=== PATIENT | female | born 1940 | race Caucasian/White ===

== ENCOUNTER 2016-12-15 15:00 | Inpatient (IN) | payer OTHER ==
--- NOTE | 2016-12-15 15:27 | EDPHY ---
H & P Stated Complaint: 3 days of N/V/D, lack of appetite. Time Seen by Provider: 12/15/16 15:27 - Personal History Current Tetanus Diphtheria and Acellular Pertussis (TDAP): Yes - Medical/Surgical History Hx Asthma: No Hx Chronic Respiratory Disease: No Hx Diabetes: No Hx Cardiac Disease: No Hx Renal Disease: No Hx Cirrhosis: No Hx Alcoholism: No Hx HIV/AIDS: No Hx Splenectomy or Spleen Trauma: No Other PMH: UTI, DIVERTICULITIS, L3-4 FUSION, BOTH KNEES, L SHOULDER SURG, CERVICAL FUSION, SIGMOID RESECTION, - Social History Smoking Status: Former smoker Constitutional: Initial Vital Signs Temperature (C) 36.5 C 12/15/16 15:04 Heart Rate 72 12/15/16 15:04 Respiratory Rate 18 12/15/16 15:04 Blood Pressure 137/81 H 12/15/16 15:04 O2 Sat (%) 97 12/15/16 15:04 O2 Delivery Mode Room Air Allergies/Adverse Reactions: No Known Allergies Allergy (Verified 04/02/16 09:24) Home Medications: Medication Instructions Recorded Donepezil HCl [Aricept 5 MG (*)] 10 mg PO HS 12/08/14 Hydroxychloroquine Sulfate 200 mg PO DAILY 12/08/14 [Plaquenil 200 mg (*)] Bupropion HCl [Wellbutrin Xl] 300 mg PO DAILY 04/02/16 Multivitamins [Multivitamin (*)] 1 each PO DAILY 04/02/16 Omeprazole [Prilosec 20 mg] 40 mg PO DAILY 04/02/16 Promethazine HCl [Phenergan 25mg 12.5 - 25 mg PO BID #30 tab 04/04/16 (*)] Medical Decision Making ED Course/Re-evaluation: CHIEF COMPLAINT: Nausea, lack of appetite. HISTORY OF PRESENT ILLNESS: The patient is a 76-year-old female with a history of diverticulitis who presents with 3 days of nausea, lack of appetite, and headache. She vomited twice yesterday and today. The headache has been intermittent since Thursday. She admits associated loose stools. She has been seen in the ER multiple times for similar symptoms. Symptoms usually go away on their own but these have been more persistent than usual. She denies fever, chills, chest pain, shortness of breath. REVIEW OF SYSTEMS: A 10 point review of systems was performed and is negative with the exception of the elements mentioned in the history of present illness. PHYSICAL EXAM: HR, BP, O2 Sat, RR. Temp noted General Appearance: Alert, well hydrated, appropriate, and non-toxic appearing. Head: Atraumatic without scalp tenderness or obvious injury Eyes: Pupils equal, round, reactive to light and accommodation, EOMI, no trauma , no injection. Ears: Clear bilaterally, no perforation, normal landmarks Nose: Atraumatic, no rhinorrhea, clear. Throat: There is no erythema or exudates, no lesions, normal tonsils, mucus membranes moist. Neck: Supple, 2+ carotid upstroke, nontender, no lymphadenopathy. Respiratory: No retractions, no distress, no wheezes, and no accessory muscle use. Lungs are clear to auscultation bilaterally. Cardiovascular: Regular rate and rhythm, no murmurs, rubs, or gallops. Bilateral carotid, radial, dorsalis pedis, and posterior tibial pulses intact. Good capillary refill all extremities. Gastrointestinal: Abdomen is soft, non-distended, no masses, no rebound, no guarding, no peritoneal signs. Mild Musculoskeletal: Normal active ROM of all extremities, atraumatic. Neurological: Alert, appropriate, and interactive. The patient has normal DTRs and non-focal cranial nerves, motor, sensory, and cerebellar exam. Skin: No rashes, good turgor, no nodules on palpation. Past medical history: UTI, diverticulitis, dementia. Past surgical history: L3/L4 fusion, knee replacements, cervical fusion, sigmoid colon resection. Family history: N/A. Social history: . DIAGNOSTICS/PROCEDURES/CRITICAL CARE TIME: Study: CT of the abdomen/pelvis. Indication: Pain, nausea, vomiting. Results: 1. Circumferential thickening of the second portion of the duodenum, suggesting inflammation or infection, without evidence of obstruction. This could less likely be related to artifact from peristalsis. 2. Stable nonspecific mesenteric stranding, which can be seen with trace ascites, hypoproteinemia, inflammation and other etiologies. 3. Additional findings as above. The study was read by the radiologist, Dr. Fontana. I viewed the images myself on the PACS system. DIFFERENTIAL DIAGNOSIS: The differential diagnosis for the patient's nausea and vomiting included but was not limited to gastroenteritis, gastritis, appendicitis, and medication side effect. MEDICAL DECISION MAKIN-year-old female presents with 3 days of nausea, vomiting, headache, and diarrhea. She does have associated intermittent non-radiating abdominal pain. She has a history of diverticulitis and sigmoid resection and has been seen in the ER multiple times, however this episode is more persistent than usual. On exam she is mildly tender in her lower abdomen. An IV was established and labs ordered. Abdominal/pelvis CT ordered. WBC low at 3.6. Blood work is otherwise unremarkable. CT results conveyed to me as duodenitis by Dr. Fontana. Hospitalist paged. 1gm IV Ertapenem administered. 175: Consulted with Dr. Howell, hospitalist. She accepts admission. I discussed this with the patient and informed her of the plan. I answered her questions. She is comfortable with the plan for admission. - Data Points Laboratory Results: Laboratory Results 12/15/16 15:40 12/15/16 15:40 12/15/16 12/15/16 12/15/16 16:25 15:40 15:40 WBC 3.60 10^3/uL L 10^3/uL (3.80-9.50) RBC 5.35 10^6/uL H 10^6/uL (4.18-5.33) Hgb 16.7 g/dL H g/dL (12.6-16.3) Hct 49.0 % H % (38.0-47.0) MCV 91.6 fL fL (81.5-99.8) MCH 31.2 pg pg (27.9-34.1) MCHC 34.1 g/dL g/dL (32.4-36.7) RDW 13.2 % % (11.5-15.2) Plt Count 179 10^3/uL 10^3/uL (150-400) MPV 10.1 fL fL (8.7-11.7) Neut % (Auto) 54.1 % % (39.3-74.2) Lymph % (Auto) 31.1 % % (15.0-45.0) [place] % (Auto) 12.5 % % (4.5-13.0) Eos % (Auto) 1.4 % % (0.6-7.6) Baso % (Auto) 0.6 % % (0.3-1.7) Nucleat RBC Rel Count 0.0 % % (0.0-0.2) Absolute Neuts (auto) 1.95 10^3/uL 10^3/uL (1.70-6.50) Absolute Lymphs (auto) 1.12 10^3/uL 10^3/uL (1.00-3.00) Absolute Monos (auto) 0.45 10^3/uL 10^3/uL (0.30-0.80) Absolute Eos (auto) 0.05 10^3/uL 10^3/uL (0.03-0.40) Absolute Basos (auto) 0.02 10^3/uL 10^3/uL (0.02-0.10) Absolute Nucleated RBC 0.00 10^3/uL 10^3/uL (0-0.01) Immature Gran % 0.3 % % (0.0-1.1) Immature Gran # 0.01 10^3/uL 10^3/uL (0.00-0.10) Sodium 147 mEq/L H mEq/L (134-144) Potassium 5.1 mEq/L mEq/L (3.5-5.2) Chloride 107 mEq/L mEq/L (97-110) Carbon Dioxide 24 mEq/l mEq/l (22-31) Anion Gap 16 mEq/L mEq/L (8-16) BUN 27 mg/dL H mg/dL (7-23) Creatinine 1.0 mg/dL mg/dL (0.6-1.0) Estimated GFR 54 Glucose 86 mg/dL mg/dL (70-100) Calcium 8.8 mg/dL mg/dL (8.5-10.4) Total Bilirubin Conjugated Bilirubin Unconjugated Bilirubin AST ALT Alkaline Phosphatase Total Protein Albumin Lipase Specimen Hemolysis 117 Urine Color PALE YELLOW Urine Appearance CLEAR Urine pH 6.0 (5.0-7.5) Ur Specific [place] 1.004 (1.002-1.030) Urine Protein NEGATIVE (NEGATIVE) Urine Ketones TRACE H (NEGATIVE) Urine Blood NEGATIVE (NEGATIVE) Urine Nitrate NEGATIVE (NEGATIVE) Urine Bilirubin NEGATIVE (NEGATIVE) Urine Urobilinogen NEGATIVE EU EU (0.2-1.0) Ur Leukocyte Esterase NEGATIVE (NEGATIVE) Ur Culture Indicated? NOT INDICATED (NI) Urine Glucose NEGATIVE (NEGATIVE) 12/15/16 15:15 WBC RBC Hgb Hct MCV MCH MCHC RDW Plt Count MPV Neut % (Auto) Lymph % (Auto) [place] % (Auto) Eos % (Auto) Baso % (Auto) Nucleat RBC Rel Count Absolute Neuts (auto) Absolute Lymphs (auto) Absolute Monos (auto) Absolute Eos (auto) Absolute Basos (auto) Absolute Nucleated RBC Immature Gran % Immature Gran # Sodium Potassium Chloride Carbon Dioxide Anion Gap BUN Creatinine Estimated GFR Glucose Calcium Total Bilirubin 1.1 mg/dL mg/dL (0.1-1.4) Conjugated Bilirubin 0.7 mg/dL H mg/dL (0.0-0.5) Unconjugated Bilirubin 0.4 mg/dL mg/dL (0.0-1.1) AST 59 IU/L H IU/L (14-46) ALT 39 IU/L IU/L (9-52) Alkaline Phosphatase 66 IU/L IU/L (38-126) Total Protein 7.0 g/dL g/dL (6.3-8.2) Albumin 4.5 g/dL g/dL (3.5-5.0) Lipase 166.0 IU/L IU/L (23-300) Specimen Hemolysis Urine Color Urine Appearance Urine pH Ur Specific [place] Urine Protein Urine Ketones Urine Blood Urine Nitrate Urine Bilirubin Urine Urobilinogen Ur Leukocyte Esterase Ur Culture Indicated? Urine Glucose Medications Given: Discontinued Medications Sodium Chloride (Ns) 1,000 mls @ 0 mls/hr IV ONCE ONE PRN Reason: Wide Open Stop: 12/15/16 15:46 Last Admin: 12/15/16 15:45 Dose: 1,000 mls Sodium Chloride (Ns) 1,000 mls @ 0 mls/hr IV ONCE ONE PRN Reason: Wide Open Stop: 12/15/16 16:07 Last Admin: 12/15/16 16:26 Dose: 1,000 mls Ertapenem 1 gm/ Sodium (Chloride) 100 mls @ 200 mls/hr IV EDNOW ONE PRN Reason: Protocol Stop: 12/15/16 18:19 Last Admin: 12/15/16 18:20 Dose: 100 mls Ondansetron HCl (Zofran) 4 mg IVP EDNOW ONE Stop: 12/15/16 15:46 Last Admin: 12/15/16 15:52 Dose: 4 mg Departure - Departure Disposition: [facility] Inpatient Acute Clinical Impression: Duodenitis, Enteritis, Dehydration Nausea & vomiting Qualifiers: Vomiting type: unspecified Vomiting Intractability: non-intractable Qualified Code(s): R11.2 - Nausea with vomiting, unspecified Condition: Fair Report Scribed for: Homero Mckeon Report Scribed by: Rufus Foster Date of Report: 12/15/16 Time of Report: 16:01
[2016-12-15] MEDS ORDERED: ONDANSETRON 4 MG/2 ML VIAL IVP ONE (15:45)
[2016-12-15] MEDS ORDERED: NS 1,000 ML IV ONE ×2 (15:45→16:06)
[2016-12-15 15:49] LABS: % IMMATURE GRANULYOCYTES 0.3 % (0.0-1.1); ABSOLUTE IMMATURE GRANULOCYTES 0.01 10^3/uL (0.00-0.10); ADD DIFF? NO; ADD MORPH? NO; ADD SCAN? NO; ATYPICAL LYMPHOCYTE FLAG 30 (0-99); FRAGMENT RBC FLAG 0 (0-99); HEMOGLOBIN 16.7 g/dL (12.6-16.3); LEFT SHIFT FLG 0 (0-99); LIPEMIA HEMOLYSIS FLAG 90 (0-99); MEAN CELL HEMOGLOBIN 31.2 pg (27.9-34.1); MEAN CELL HEMOGLOBIN CONCENTR. 34.1 g/dL (32.4-36.7); MEAN CELL VOLUME 91.6 fL (81.5-99.8); MEAN PLATELET VOLUME 10.1 fL (8.7-11.7); PLATELET CLUMPS FLAG 30 (0-99); PLATELET COUNT 179 10^3/uL (150-400); RED BLOOD CELL COUNT 5.35 10^6/uL (4.18-5.33); RED CELL DISTRIBUTION WIDTH 13.2 % (11.5-15.2)
[2016-12-15 16:07] LABS: ANION GAP 16 mEq/L (8-16); CALCIUM 8.8 mg/dL (8.5-10.4); CARBON DIOXIDE 24 mEq/l (22-31); CHLORIDE 107 mEq/L (97-110); GLOMERULAR FILTRATION RATE 54; GLUCOSE 86 mg/dL (70-100); POTASSIUM 5.1 mEq/L (3.5-5.2); SODIUM 147 mEq/L (134-144); SPECIMEN HEMOLYSIS 117
[2016-12-15] MEDS ORDERED: IOPAMIDOL (ISOVUE-300) 100 ML BTL IV ONE (16:44)
[2016-12-15 16:50] LABS: ALBUMIN 4.5 g/dL (3.5-5.0); BILIRUBIN,TOTAL 1.1 mg/dL (0.1-1.4); BILIRUBIN-CONJUGATED 0.7 mg/dL (0.0-0.5); BILIRUBIN-UNCONJUGATED 0.4 mg/dL (0.0-1.1)
[2016-12-15 16:53] LABS: COLOR PALE YELLOW; LEUKOCYTE ESTERASE,URINE NEGATIVE (NEGATIVE); NITRITE,URINE NEGATIVE (NEGATIVE)
[2016-12-15] MEDS ORDERED: ERTAPENEM 1 GM in NS 100 ML IV ONE (17:50)
[2016-12-15] MEDS ORDERED: ACETAMINOPHEN 325 MG TAB PO PRN (19:52)
[2016-12-15] MEDS ORDERED: D5W 1/2 NS 1,000 ML IV SCH (20:00)
[2016-12-15] MEDS: ONDANSETRON 4 MG/2 ML VIAL IVP PRN (20:13)
--- NOTE | 2016-12-15 21:07 | GHP ---
[f rep st] HISTORY AND PHYSICAL DATE OF ADMISSION: 12/15/2016 CHIEF COMPLAINT: Nausea, vomiting, abdominal pain. HISTORY OF PRESENT ILLNESS: The patient is a 76-year-old female with a history of chronic GI symptoms including ongoing nausea who presents to the emergency department with abdominal pain, nausea, vomiting. She has had little p.o. intake over the last several days. Her gives most of the history due to her dementia. She is followed by Dr. Torrey Johnson of [facility], and underwent an upper endoscopy in May 2016 which was relatively normal. She has been diagnosed with irritable bowel syndrome, and was started on Linzess in the recent past to manage constipation predominant IBS. However recently, she has had more diarrhea. She denies hematemesis, coffee-grounds emesis, hematochezia or melenotic stools. She has had no fevers or chills. She has not taken any recent antibiotics. She does have a travel history to [place]. She denies chest pain, shortness of breath or urinary symptoms. The patient had no significant weight loss recently. In the emergency department, she underwent abdominal CT scan which shows circumferential thickening of the second portion of the duodenum suggesting inflammation versus infection, but no evidence of obstruction. There was also some consideration this could less likely be related to artifact from peristalsis. Given her symptoms, poor oral intake and CT finding, she is admitted to hospital for further management. PAST MEDICAL AND SURGICAL HISTORY: 1. History of diverticulitis. 2. Sigmoid resection secondary to diverticulitis in 2012. 3. Irritable bowel syndrome with constipation predominant, managed by Dr. Torrey Johnson, currently on Linzess. 4. Dementia, on Aricept. 5. History of gastritis. 6. Osteoarthritis. SOCIAL HISTORY: She denies alcohol or tobacco or drug use. She lives with her who is present at the bedside. Her son is also a appliance fixer physician. FAMILY HISTORY: Reviewed and noncontributory. REVIEW OF SYSTEMS: A 10-point review of systems was performed and is negative except as per HPI. OBJECTIVE: VITAL SIGNS: Temperature 36.6, blood pressure 155/89, heart rate 67 , respiratory rate 14, she is 96% on room air. GENERAL: The patient is awake, alert, oriented, no acute distress. HEENT: Head is atraumatic, normocephalic. Pupils equal, round, react to light. Extraocular muscles intact. Oropharynx is clear. Mucous membranes are moist. NECK: Supple. There is no JVD. HEART : Regular rate without murmur. LUNGS: Clear to auscultation bilaterally. ABDOMEN: Soft, nondistended, nontender with normoactive bowel tones. EXTREMITIES: Without cyanosis, clubbing, or edema. NEUROLOGIC: Grossly nonfocal. LABORATORY DATA: CBC reveals a white blood cell count of 3.6, hemoglobin 16.7. Complete metabolic panel is remarkable for sodium 127, BUN 27, conjugated bilirubin is 0.7, total bilirubin is normal. AST is very minimally elevated at 59, ALT 39, her lipase is normal. Urinalysis is negative. Abdomen and pelvis CT, findings are described above. ASSESSMENT AND PLAN: The patient is a 76-year-old female with a history of chronic nausea and gastrointestinal symptoms who presents to the hospital with nausea, vomiting, diarrhea and abdominal pain. 1. Nausea, vomiting, diarrhea. Her CT shows evidence of duodenitis vs less likely peristaltic artifact. Differential includes a possible infectious etiology vs duodenal ulcer versus neoplasm. Send GI pathogen panel. Check H pylori Ab and start IV PPI. She received 1 g of IV Invanz in the emergency department. I'm going to defer further atbx for now, unless she is C diff positive. Consider a GI consult if she is not improving for consideration of repeat EGD. She will be given IV fluids due to poor oral intake. 2. Hypernatremia, this is mild. She may be hemoconcentrated. Will treat with half normal saline for now. Recheck in the morning. 3. Dementia. We will continue her outpatient medications. 4. DVT prophylaxis. Lovenox. 5. CODE STATUS: Patient is full code. 6. Disposition: Patient admitted to inpatient status as she will likely require greater than 48 hours hospitalization for ongoing management of her acute GI symptoms. /[id number]/MODL MTDD
[2016-12-15] MEDS: DONEPEZIL HCL 5 MG TAB PO SCH (22:23)
[2016-12-15] MEDS: PROMETHAZINE HCL 25 MG TAB PO PRN (22:25)
[2016-12-15] MEDS: PANTOPRAZOLE SODIUM 40 MG in NS 100 ML IV SCH (22:27)
[2016-12-15] MEDS: TRAMADOL HCL 100 MG PO SCH (23:10)
[2016-12-16] MEDS: PROMETHAZINE HCL 25 MG TAB PO PRN (05:50)
[2016-12-16 06:00] LABS: % IMMATURE GRANULYOCYTES 0.3 % (0.0-1.1); ABSOLUTE IMMATURE GRANULOCYTES 0.01 10^3/uL (0.00-0.10); ADD DIFF? NO; ADD MORPH? NO; ADD SCAN? NO; ATYPICAL LYMPHOCYTE FLAG 20 (0-99); FRAGMENT RBC FLAG 0 (0-99); HEMOGLOBIN 14.1 g/dL (12.6-16.3); LEFT SHIFT FLG 0 (0-99); LIPEMIA HEMOLYSIS FLAG 80 (0-99); MEAN CELL HEMOGLOBIN 30.9 pg (27.9-34.1); MEAN CELL HEMOGLOBIN CONCENTR. 33.6 g/dL (32.4-36.7); MEAN CELL VOLUME 91.9 fL (81.5-99.8); MEAN PLATELET VOLUME 10.1 fL (8.7-11.7); PLATELET CLUMPS FLAG 0 (0-99); PLATELET COUNT 157 10^3/uL (150-400); RED BLOOD CELL COUNT 4.57 10^6/uL (4.18-5.33); RED CELL DISTRIBUTION WIDTH 13.4 % (11.5-15.2)
[2016-12-16 06:07] LABS: ALANINE AMINOTRANSFERASE 40 IU/L (9-52); ALBUMIN 3.4 g/dL (3.5-5.0); ALKALINE PHOSPHATASE 41 IU/L (38-126); ANION GAP 7 mEq/L (8-16); ASPARTATE AMINOTRANSFERASE 40 IU/L (14-46); BILIRUBIN,TOTAL 0.7 mg/dL (0.1-1.4); CALCIUM 7.4 mg/dL (8.5-10.4); CARBON DIOXIDE 22 mEq/l (22-31); CHLORIDE 110 mEq/L (97-110); CREATININE 0.9 mg/dL (0.6-1.0); GLOMERULAR FILTRATION RATE > 60; GLUCOSE 74 mg/dL (70-100); POTASSIUM 4.2 mEq/L (3.5-5.2); SODIUM 139 mEq/L (134-144); TOTAL PROTEIN 5.8 g/dL (6.3-8.2)
[2016-12-16] MEDS: HYDROXYCHLOROQUINE SULFATE 200 MG TAB PO SCH (08:34)
[2016-12-16] MEDS: ONDANSETRON 4 MG/2 ML VIAL IVP PRN (08:34)
[2016-12-16] MEDS: ENOXAPARIN 40 MG/0.4 ML SYR SC SCH (08:34)
[2016-12-16] MEDS: buPROPion XL 150 MG TAB PO SCH (08:34)
[2016-12-16] MEDS: PANTOPRAZOLE SODIUM 40 MG in NS 100 ML IV SCH ×2 (08:34→20:30)
[2016-12-16] MEDS: TRAMADOL HCL 100 MG PO SCH (08:39)
[2016-12-16] MEDS ORDERED: MIDAZOLAM 2 MG/2 ML VIAL ONE (14:24)
[2016-12-16] MEDS ORDERED: fentaNYL 100 MCG/2 ML INJ ONE (14:25)
[2016-12-16] MEDS ORDERED: FLUMAZENIL 0.5 MG/5 ML MDV IVP ONE (14:28)
[2016-12-16] MEDS ORDERED: EPINEPHrine 1 MG/10 ML SYR IVP ONE (14:28)
[2016-12-16] MEDS ORDERED: NALOXONE HCL 0.4 MG/ML INJ ONE (14:28)
--- NOTE | 2016-12-16 15:35 | GCON ---
[f rep st] CONSULTATION ASSESSMENT: A 76-year-old female with a history of chronic gastrointestinal symptoms who is presenting with acute exacerbation of epigastric abdominal pain , nausea, and vomiting, with an abnormal CT scan showing circumferential duodenal thickness. The differential includes exacerbation of her chronic symptoms, acute viral gastroenteritis. Gastritis or duodenitis are possible. Gastric ulceration is possible with the abnormal CT scan findings or duodenal malignancy. RECOMMENDATIONS: 1. Agree with IV PPI treatment. 2. Keep n.p.o. 3. We will plan for an upper endoscopy for further evaluation of abnormal CT scan findings. 4. Further recommendations pending the results of her upper endoscopy. CHIEF COMPLAINT: I was asked to see the patient in consultation by Dr. Ward for the chief complaint of nausea, vomiting, epigastric abdominal pain, diarrhea , and abnormal imaging of the GI tract. HISTORY OF PRESENT ILLNESS: The patient is a 76-year-old female who is followed in our clinic by Dr. Torrey Johnson. She has undergone an extensive workup in the past, including upper endoscopy and colonoscopy. Her last upper endoscopy was in 2016, which was normal. She presents to the emergency room with acute moderate to severe onset of epigastric abdominal pain, nausea, and vomiting. She is unable to take oral intake over the last 2 days. She has a history of dementia, and most of her history is obtained from her . She has a history of irritable bowel syndrome and is on Linzess for management of chronic constipation related to irritable bowel syndrome. She has ongoing constipation symptoms. Her last bowel movement was several days ago. She denies any fevers. No hematemesis or hematochezia. She has no weight loss. She is feeling better since admission to the hospital, although still has some mild periumbilical discomfort. REVIEW OF SYSTEMS: CONSTITUTIONAL: Negative. HEENT: Negative. RESPIRATORY: Negative. CARDIOVASCULAR: Negative. GASTROINTESTINAL: See History of Present Illness. GENITOURINARY: Negative. ENDOCRINE: Negative. MUSCULOSKELETAL: Negative. HEMATOLOGIC/LYMPHATIC: Negative. IMMUNOLOGIC/ ALLERGIC/RHEUMATOLOGIC: Negative. SKIN: Negative. NEUROLOGIC: She has some memory difficulties secondary to dementia. MENTAL HEALTH: Negative. PAST MEDICAL HISTORY: 1. History of diverticulitis with sigmoid resection in 2012. 2. Irritable bowel syndrome with constipation, on Linzess. 3. Dementia, on Aricept. 4. Osteoarthritis. PAST SURGICAL HISTORY: History of sigmoid resection secondary to diverticulitis. FAMILY HISTORY: There is no family history related to the chief complaint. SOCIAL HISTORY: She does not drink alcohol or smoke cigarettes. She lives with her . ALLERGIES: She has no known drug allergies. MEDICATIONS: Outpatient: 1. Linzess 290 mcg orally daily. 2. Omeprazole 40 mg orally daily. 3. Zofran 4 mg as needed for nausea. 4. Aricept 10 mg per day. 5. Hydroxychloroquine sulfate 200 mg once daily. 6. Multivitamin once daily. 7. Tramadol 50 mg as needed. 8. Wellbutrin 300 mg orally daily. Inpatient medications: 1. Acetaminophen. 2. Wellbutrin. 3. Aricept. 4. Enoxaparin. Her last dose was this morning, 40 mg subcu for DVT prophylaxis. 5. Hydroxychloroquine sulfate 200 mg orally daily. 6. Morphine 1-2 mg every 2 hours as needed. 7. Zofran 4 mg every 4 hours as needed. 8. Pantoprazole 40 mg IV b.i.d. PHYSICAL EXAMINATION: VITAL SIGNS: Blood pressure is 126/70, heart rate 61, respirations 16, oxygen saturation 95% on room air. GENERAL: She is in no apparent distress. Awake, alert, interactive. HEENT: Pupils are equal, round , and reactive to light. Oral mucosa is moist. CHEST: Clear to auscultation bilaterally without rales, rhonchi, or wheezing. CARDIOVASCULAR: Regular rate and rhythm. No murmurs, rubs, or gallops. ABDOMEN: Mildly tender to light palpation in the periumbilical region, otherwise benign abdomen. Positive bowel sounds. MUSCULOSKELETAL: There is full range of motion. SKIN: [place], warm, and well perfused. No rashes. NEUROLOGIC: Grossly nonfocal. Cranial nerves 2-12 are intact. Lymph Nodes: No palpable lymph nodes. PSYCHIATRIC: She has mild dementia. No mood disorder and normal affect. LABORATORY DATA: White blood cell count of 3, hemoglobin 14.1, hematocrit 40, MCV 91, platelets 157. Sodium 139, potassium 4.2, chloride 110, calcium 7.4, total protein 5.8, albumin 3.7, AST 40, ALT 42, total bilirubin 0.7, alkaline phosphatase 41. Abdominal CT scan shows circumferential thickening in the 2nd portion of the duodenum, suggestive of inflammation or infection without evidence of obstruction. This could less likely be related to artifact from peristalsis. /[id number]/MODL MTDD
--- NOTE | 2016-12-16 16:08 | HOSPPROG ---
Hospitalist Progress Note Assessment/Plan: * acute nausea vomiting epigastric pain with CT findings of duodenitis * discussed with GI - they will do endoscopy * possibly infectious versus gastritis or duodenitis versus ulcer or malignancy * history of interval bowel syndrome with constipation dominant * dementia Subjective: is little bit better. Still with some epigastric pain Objective: Vital Signs Temp Pulse Resp BP Pulse Ox 36.3 C 61 18 113/74 95 12/16/16 15:54 12/16/16 15:54 12/16/16 15:54 12/16/16 15:54 12/16/16 15:54 Laboratory Results 12/16/16 05:45 12/16/16 05:45 12/15/16 12/16/16 12/17/16 05:59 05:59 05:59 Intake Total 100 Output Total 1250 Balance 100 -[address] scan personally reviewed interpreted - Physical Exam Constitutional: no apparent distress, appears nourished, not in pain Eyes: anicteric sclera, EOMI Ears, Nose, Mouth, Throat: moist mucous membranes, hearing normal, ears appear normal, no oral mucosal ulcers Cardiovascular: regular rate and rhythym, no murmur, rub, or gallop Respiratory: no respiratory distress, no rales or rhonchi, clear to auscultation Gastrointestinal: normoactive bowel sounds, tenderness ( epigastric) Skin: warm Neurologic: AAOx3 Psychiatric: interacting appropriately, not anxious, not encephalopathic, thought process linear ICD10 Worksheet Patient Problems: Problems Problem Status Onset Dehydration Acute Duodenitis Acute Enteritis Acute Nausea & vomiting Acute Abdominal pain Acute Nausea & vomiting Acute
--- NOTE | 2016-12-16 17:00 | GPN ---
[f rep st] PROCEDURE NOTE PROCEDURE: Esophagogastroduodenoscopy with biopsies. PREPROCEDURE DIAGNOSIS: Nausea, vomiting, epigastric pain and abnormal abdominal imaging. POSTPROCEDURE DIAGNOSES: 1. Minimal gastritis. 2. Gastric polyp status post biopsy. 3. Erythema in the duodenal bulb, otherwise normal duodenum status post biopsies. MEDICATIONS: Conscious sedation with fentanyl 150 mcg, midazolam 2 mg IV. TOTAL PROCEDURE TIME: 11 minutes. INDICATIONS: The patient is a 76-year-old female with a history of constipation and predominant irr itable bowel syndrome who presents with 3 days of nausea, vomiting, epigastric abdominal pain and ab normal CT scan showing circumferential thickening in the duodenum. She is undergoing upper endoscop y to evaluate etiology of nausea, vomiting and abnormal CT scan findings. The risks and benefits of the procedure were discussed with the patient and consent obtained. The risks include, but not way ited to, bleeding, perforation, risks associated with sedation. The patient is ASA class 2. DESCRIPTION OF PROCEDURE: The end-viewing endoscope was inserted into the esophagus, into the stoma ch and second portion of the duodenum, and the esophagus appears normal. The GE junction is located at 40 cm from the incisors. There was no evidence of Griffin varices or esophagitis. The stomach shows mild patchy erythema consistent with very mild gastritis. Biopsies were taken using cold biop sy forceps to evaluate for Helicobacter pylori. Along the greater curvature of the stomach, there i s a 5 mm polyp which was biopsied using cold biopsy forceps and placed in a separate bottle. The du odenum shows erythema in the duodenal bulb but is otherwise normal. There were no ulcers. Biopsies were taken with cold biopsy forceps. IMPRESSION: 1. No findings on upper endoscopy to explain the patient's symptoms. 2. Mild gastritis in the stomach and minimal duodenitis. 3. Benign-appearing gastric polyp. RECOMMENDATIONS: 1. Continue conservative management. 2. Continue Linzess for constipation. 3. Continue acid suppression therapy. 4. We will follow along. Thank you for allowing me to participate in the care of your patient. Please do not hesitate to louie derek with questions. /[id number]/MODL
[2016-12-16] MEDS: DONEPEZIL HCL 5 MG TAB PO SCH (20:29)
[2016-12-16] MEDS: ONDANSETRON DISINTEGRATING 4 MG TAB PO PRN (20:31)
[2016-12-17] MEDS: ONDANSETRON DISINTEGRATING 4 MG TAB PO PRN ×2 (00:42→11:04)
[2016-12-17 08:23] VITALS: BP 128/71; PULSE 95; RESP 14; TEMP 97.8; O2SAT 93
[2016-12-17] MEDS: buPROPion XL 150 MG TAB PO SCH (08:42)
[2016-12-17] MEDS: PANTOPRAZOLE SODIUM 40 MG in NS 100 ML IV SCH (08:42)
[2016-12-17] MEDS: ENOXAPARIN 40 MG/0.4 ML SYR SC SCH (08:42)
[2016-12-17] MEDS: HYDROXYCHLOROQUINE SULFATE 200 MG TAB PO SCH (08:42)
[2016-12-17] MEDS: ONDANSETRON 4 MG/2 ML VIAL IVP PRN (08:42)
[2016-12-17] MEDS: TRAMADOL HCL 100 MG PO SCH (08:51)
--- NOTE | 2016-12-17 10:52 | GDS ---
[f rep st] DISCHARGE SUMMARY DISCHARGE DIAGNOSIS: 1. Intermittent episodes of nausea, abdominal pain of unclear etiology. 2. Dementia. HISTORY: This is a 76-year-old, female who has had intermittent episodes of nausea vomiting and epi gastric pain for the last couple years occurring every 6 months to a year. She had a similar presen tation prior to admission. HOSPITAL COURSE: The patient did have some slight inflammation in the duodenum. She underwent EGD and biopsies were drawn. She is improving somewhat with just symptomatic treatment. Interestingly she has had abnormalities her CT scans for the last 3 admissions that were mild but implied some typ e of inflammatory disorder. She does see Torrey Johnson outpatient and will follow up with him. I am n ot sure if she has had any celiac workup but I assume that she has had that. She has also had stool studies that were drawn today and which can be followed up on as well. Her does want to ta ke her home and feels that she would be more comfortable there. DISPOSITION: Home. DISCHARGE MEDICATIONS: She is to resume all of her home medicines. FOLLOWUP INSTRUCTIONS: She is instructed follow up Dr. Johnson. Greater than 30 minutes were spent on discharge. /[id number]/MODL
== END 2016-12-17 11:18 | disposition home or self-care (01) | DRG 392 ==
LOC: F3E 18:41 → OBSVTOIN 19:52
PROVIDERS: ADMIT Hospitalist; ATTEND Hospitalist
PROC: 0DB68ZX Excision of Stomach, Via Natural or Artificial Opening Endoscopic, Diagnostic (ICD-10-PCS; principal; 2016-12-15)
PROC: 0DB98ZX Excision of Duodenum, Via Natural or Artificial Opening Endoscopic, Diagnostic (ICD-10-PCS; principal; 2016-12-15)
DX: R10.9 Unspecified abdominal pain (principal); R11.0 Nausea; D13.1 Benign neoplasm of stomach; K29.70 Gastritis, unspecified, without bleeding; E87.0 Hyperosmolality and hypernatremia; F03.90 Unspecified dementia, unspecified severity, without behavioral disturbance, psychotic disturbance, mood disturbance, and anxiety; Z87.891 Personal history of nicotine dependence; Z96.653 Presence of artificial knee joint, bilateral; Z98.1 Arthrodesis status; Z87.440 Personal history of urinary (tract) infections
CPT/HCPCS: 96365; 96366; 97161-GP; 97165-GO; G8978-GP-CI; G8979-GP-CI; G8987-GO-CJ; G8988-GO-CI; J1335; J1650; J2250; J2310; J2405; J3010; Q9967

== ENCOUNTER 2017-01-17 09:03 | Emergency (ER) | payer OTHER ==
--- NOTE | 2017-01-17 09:29 | EDPHY ---
H & P Stated Complaint: Pt has constipation and wants an enema;states hard stool in rectum Time Seen by Provider: 01/17/17 09:07 HPI/ROS: CHIEF COMPLAINT: Constipation HISTORY OF PRESENT ILLNESS: The patient has a history of chronic constipation. She takes [id number] laxatives and is typically able to manage her symptoms. The patient is also on a prescription medication for constipation. The patient presents to the ED with inability to have a bowel movement for the past 4 days. The patient does report she notes stool in her rectal vault on digital examination. The patient is accompanied by her who reports that while the patient has a history of dementia she has not complained of significant abdominal pain, fever or had vomiting over the past 4-5 days. The patient does have a history of chronic intermittent abdominal pain which appears to have been recently diagnosed secondary to her Aricept use. The patient was hospitalized earlier this year for and upper endoscopy which was essentially unremarkable. REVIEW OF SYSTEMS: A comprehensive 10 point review of systems is otherwise negative aside from elements mentioned in the history of present illness. Source: Patient, Family - Personal History Current Tetanus Diphtheria and Acellular Pertussis (TDAP): Yes - Medical/Surgical History Hx Asthma: No Hx Chronic Respiratory Disease: No Hx Diabetes: No Hx Cardiac Disease: No Hx Renal Disease: No Hx Cirrhosis: No Hx Alcoholism: No Hx HIV/AIDS: No Hx Splenectomy or Spleen Trauma: No Other PMH: UTI, DIVERTICULITIS, L3-4 FUSION, BOTH KNEES, L SHOULDER SURG, CERVICAL FUSION, SIGMOID RESECTION,. chronic constipation - Social History Smoking Status: Former smoker - Physical Exam Exam: General Appearance: Alert, no distress Eyes: Pupils equal and round no pallor or injection ENT, Mouth: Mucous membranes moist Respiratory: There are no retractions, lungs are clear to auscultation Cardiovascular: Regular rate and rhythm Gastrointestinal: Abdomen is soft and nontender, no masses, bowel sounds normal Rectal: Brown stool noted involved Neurological: 5/5 strength all 4 extremities Skin: Warm and dry, no rashes Musculoskeletal: Neck is supple nontender Extremities: symmetrical, full range of motion Constitutional: Initial Vital Signs Temperature (C) 36.7 C 01/17/17 09:05 Heart Rate 67 01/17/17 09:05 Respiratory Rate 18 01/17/17 09:05 Blood Pressure 125/70 H 01/17/17 09:05 O2 Sat (%) 96 01/17/17 09:05 O2 Delivery Mode Room Air Allergies/Adverse Reactions: No Known Allergies Allergy (Verified 01/17/17 09:08) Home Medications: Medication Instructions Recorded Hydroxychloroquine Sulfate 200 mg PO DAILY 12/08/14 [Plaquenil 200 mg (*)] Omeprazole [Prilosec 20 mg] 40 mg PO DAILY 04/02/16 Linaclotide [Linzess] 290 mcg PO DAILY 12/15/16 Sennosides/Docusate Sodium 2 tab PO HS 12/15/16 [Senna-S Tablet] buPROPion XL [Wellbutrin 150mg XL] 300 mg PO DAILY 12/15/16 traMADol [Ultram 50 mg (*)] 50 mg PO 01/17/17 Medical Decision Making ED Course/Re-evaluation: The patient presents to the ED with constipation. She has a soft nontender abdomen. The patient was noted to have stool in her rectal vault which was manually disimpacted by myself. The patient was given a soapsuds enema in the ED. Re-examination at 10:30 a.m.. The patient has had a large bowel movement. She feels as if her constipation has resolved. The patient's abdominal examination remains benign. The patient will be discharged home with customary aftercare instructions and return precautions. Differential Diagnosis: Differential diagnosis considered includes fecal impaction, constipation, medication side effect Departure - Departure Disposition: Home, Routine, Self-Care Clinical Impression: Constipation Condition: Good Instructions: Constipation (ED) Additional Instructions: 1. Please return to the ED for any worsening symptoms or other concerns. 2. Please continue your regular outpatient medications as prescribed. Referrals: Deonte Francisco MD [Primary Care Provider] - As per Instructions
[2017-01-17 10:50] VITALS: BP 124/74; PULSE 64; RESP 16; TEMP 97.5; O2SAT 97
== END 2017-01-17 10:55 | disposition home or self-care (01) ==
DX: K59.00 Constipation, unspecified (principal); Z87.891 Personal history of nicotine dependence